=== PATIENT | male | born 1990 | race Caucasian/White ===

== ENCOUNTER 2018-07-19 22:01 | Emergency (ER) | payer MEDICAID, OTHER ==
[~2018-07-19] VITALS: Ht 177.8 cm; Wt 81.8 kg
[2018-07-19 22:25] VITALS: BP 142/91
[2018-07-19] MEDS ORDERED: PERTUSS(ACELL),DIPH,TET VAC/PF 0.5 ML VIAL IM ONE (23:15)
[2018-07-19] MEDS ORDERED: CIPROFLOXACIN HCL 250 MG TABLET PO ONE (23:15)
== END 2018-07-19 23:39 | disposition home or self-care (01) ==
LOC: EMS 22:02
DX: S61.532A Puncture wound without foreign body of left wrist, initial encounter (principal); W45.0XXA Nail entering through skin, initial encounter; Y93.89 Activity, other specified; Y92.89 Other specified places as the place of occurrence of the external cause; Y99.8 Other external cause status
CPT/HCPCS: 90471; 90715